=== PATIENT | male | born 1945 | race Caucasian/White ===

== ENCOUNTER 2021-05-03 13:44 | Observation (INO) | payer OTHER, SELFPAY ==
[~2021-05-03] VITALS: Ht 177.8 cm; Wt 90.7 kg
[2021-05-03 13:44] VITALS: BP_SYST 145
[~2021-05-03 13:44] MED LIST: ASPI-1393 PO; ATOR20TA64 PO; HYDR-3919 PO; LISI10TA29 PO; OMEP20CA4 PO; PROXL60 PO; [UNRECOGNIZED DRUG - CODE] PO
[2021-05-03 14:40] LABS: BASOPHILS % (AUTO) 0.4 % (0.0-2.0); EOSINOPHILS % (AUTO) 0.2 % (0.0-4.0); HEMATOCRIT 42.3 % (36-54); HEMOGLOBIN 14.9 g/dL (14.0-18.0); LYMPHOCYTES # (AUTO) 1.1 K/uL (1.0-5.5); LYMPHOCYTES % (AUTO) 9.8 % (20.5-51.5); MEAN CORPUSCULAR HEMOGLOBIN 33 pg (27-31); MEAN CORPUSCULAR HGB CONC 35 % (32-36); MEAN CORPUSCULAR VOLUME 95 fL (79.0-98.0); MONOCYTES # (AUTO) 1.2 K/uL (0.0-1.0); MONOCYTES % (AUTO) 11.1 % (1.7-9.3); NEUTROPHILS # (AUTO) 8.5 K/uL (1.8-7.7); NEUTROPHILS % (AUTO) 78.5 % (40.0-70.0); PLATELET COUNT (AUTO) 334 K/uL (130-430); RED BLOOD CELL COUNT(AUTO) 4.46 MIL/uL (4.2-6.2); RED CELL DISTRIBUTION WIDTH 11.9 % (9.0-15.0); WHITE BLOOD COUNT (AUTO) 10.8 K/uL (4.8-10.8)
[2021-05-03 14:50] LABS: ANION GAP 8 (5-15); CALCIUM 9.5 mg/dL (8.4-11.0); CHLORIDE 96 mmol/L (98-107); CREATININE 0.86 mg/dL (0.55-1.30); GLUCOSE 129 mg/dL (70-99); POTASSIUM 3.9 mmol/L (3.5-5.1); SODIUM SERUM 132 mmol/L (136-145); UREA NITROGEN, BLOOD 14 mg/dL (8-21)
[2021-05-03 14:59] LABS: ALANINE AMINOTRANSFERASE 58 U/L (12-78); ALBUMIN 3.7 g/dL (3.4-4.8); ASPARTATE AMINOTRANSFERASE 44 U/L (10-37); TOTAL BILIRUBIN 0.8 mg/dL (0.0-1.0)
[2021-05-03] MEDS ORDERED: AMLO5TAB4 PO (15:30)
[2021-05-03] MEDS ORDERED: PANT20TA2 PO (15:30)
[2021-05-03] MEDS ORDERED: TAMS-11 PO (15:30)
[2021-05-03 17:37] VITALS: BP_SYST 142
[2021-05-03] MEDS: D5NS 1,000 ML IV SCH (18:56)
[2021-05-03 19:05] LABS: BILIRUBIN,URINE NEGATIVE (NEGATIVE); BLOOD, URINE NEGATIVE (NEGATIVE); COLOR,URINE YELLOW (YELLOW); GLUCOSE,URINE NEGATIVE (NEGATIVE); KETONES,URINE 1+ (NEGATIVE); LEUKOCYTE ESTERASE ,URINE NEGATIVE (NEGATIVE); NITRITE, URINE NEGATIVE (NEGATIVE); PROTEIN URINE NEGATIVE (NEGATIVE)
[2021-05-03 19:46] LABS: CLARITY/URINE SLIGHTLY HAZY (CLEAR); UROBILINOGEN,URINE >=8 (0.2-1.0)
[2021-05-03 20:01] VITALS: BP_SYST 137
[2021-05-04 00:48] VITALS: BP_SYST 146
[2021-05-04 08:00] VITALS: BP_SYST 128
[2021-05-04] MEDS: TAMSULOSIN HCL 0.4 MG CAP PO SCH ×2 (09:00→09:31)
[2021-05-04] MEDS: ATORVASTATIN 20 MG TABLET PO SCH ×2 (09:00→09:33)
[2021-05-04] MEDS: LISINOPRIL 10 MG TABLET (PRINIVIL) PO SCH ×2 (09:00→09:32)
[2021-05-04] MEDS: amLODIPine BESYLATE 5 MG TABLET PO SCH ×2 (09:00→09:31)
[2021-05-04] MEDS: D5NS 1,000 ML IV SCH (09:27)
[2021-05-04 12:00] VITALS: BP_SYST 132
[2021-05-04 16:05] VITALS: BP_SYST 130
[2021-05-04 16:35] VITALS: BP_SYST 142
== END 2021-05-04 17:15 | disposition home or self-care (01) ==
LOC: SED 13:44 → INTOOBSV 15:37 → STU 15:37
PROVIDERS: ADMIT Internal Medicine Hospice and Palliative Medicine; ATTEND Internal Medicine Hospice and Palliative Medicine
DX: R41.0 Disorientation, unspecified (principal); Z20.822 Contact with and (suspected) exposure to COVID-19; R47.1 Dysarthria and anarthria; R27.0 Ataxia, unspecified; C43.9 Malignant melanoma of skin, unspecified; I10 Essential (primary) hypertension; K21.9 Gastro-esophageal reflux disease without esophagitis; R91.1 Solitary pulmonary nodule; Z79.899 Other long term (current) drug therapy
CPT/HCPCS: 36415; 70450; 70551; 71045; 76376; 80053; 81003; 84484; 85025; 85730; 87426; 92610; 93005; 94760; 96360; 96361 ×2; 97163; 99285; G0378

== ENCOUNTER 2021-05-08 14:28 | Emergency (ER) | payer OTHER, SELFPAY ==
[~2021-05-08] VITALS: Ht 177.8 cm; Wt 90.3 kg
[~2021-05-08 14:28] MED LIST changes: +AMLO5TAB4 PO; -ASPI-1393 PO; -HYDR-3919 PO; -OMEP20CA4 PO; +PANT20TA2 PO; -PROXL60 PO; +TAMS-11 PO; -[UNRECOGNIZED DRUG - CODE] PO
[2021-05-08 14:30] VITALS: BP_SYST 150
--- NOTE | 2021-05-08 14:30 | NUR ---
pt. bib ACLS from home with slurred speech, per speech has not improved since last admission, here on 05/03 with same c/o slurred speech that started on 04/29, EMS reported speech had improved then worsened last night but clarified has only worsened and called 911 today when gait was off, per pt. recently dx with CA that has spread all over per . Pt. has good stem mounter, able to follow directions
--- NOTE | 2021-05-08 14:30 | NUR ---
ER at bedside examining patient.
--- NOTE | 2021-05-08 14:30 | NUR ---
Patient to ER bed 2 to gown for evaluation. Side rails up.
--- NOTE | 2021-05-08 14:50 | NUR ---
report to [facility]
--- NOTE | 2021-05-08 15:12 | NUR ---
pt put on 2 lpm o2 via nasal cannula
[2021-05-08 15:13] LABS: HEMATOCRIT 40.8 % (36-54); HEMOGLOBIN 14.3 g/dL (14.0-18.0); LYMPHOCYTES # (AUTO) 0.8 K/uL (1.0-5.5); LYMPHOCYTES % (AUTO) 8.3 % (20.5-51.5); MEAN CORPUSCULAR HEMOGLOBIN 33 pg (27-31); MEAN CORPUSCULAR HGB CONC 35 % (32-36); MEAN CORPUSCULAR VOLUME 95 fL (79.0-98.0); MONOCYTES # (AUTO) 0.7 K/uL (0.0-1.0); MONOCYTES % (AUTO) 7.9 % (1.7-9.3); NEUTROPHILS # (AUTO) 7.5 K/uL (1.8-7.7); NEUTROPHILS % (AUTO) 82.2 % (40.0-70.0); PLATELET COUNT (AUTO) 345 K/uL (130-430); WHITE BLOOD COUNT (AUTO) 9.1 K/uL (4.8-10.8)
[2021-05-08 15:19] LABS: BASOPHILS % (AUTO) 0.3 % (0.0-2.0); EOSINOPHILS # (AUTO) 0.1 K/uL (0.0-0.4); EOSINOPHILS % (AUTO) 1.3 % (0.0-4.0)
[2021-05-08 15:21] LABS: ANION GAP 10 (5-15); CALCIUM 9.7 mg/dL (8.4-11.0); CHLORIDE 100 mmol/L (98-107); GLUCOSE 122 mg/dL (70-99); POTASSIUM 3.9 mmol/L (3.5-5.1); SODIUM SERUM 139 mmol/L (136-145); UREA NITROGEN, BLOOD 22 mg/dL (8-21)
[2021-05-08 15:30] LABS: ALANINE AMINOTRANSFERASE 66 U/L (12-78); ALBUMIN 3.5 g/dL (3.4-4.8); ASPARTATE AMINOTRANSFERASE 49 U/L (10-37); TOTAL BILIRUBIN 0.8 mg/dL (0.0-1.0)
--- NOTE | 2021-05-08 16:19 | NUR ---
PT WITH EYES CLOSED, RESP EVEN AND UNLABORED, IN NAD. VSS, SR ON MONITOR. AT BEDSIDE. SAFETY PRECAUTIONS IN PLACE.
--- NOTE | 2021-05-08 17:07 | NUR ---
FAMILY AT BEDSIDE, PT IN NAD. CONVERSING WITH AT BEDSIDE. PT DENIES ANY PAIN, CONTINUES WITH SLURRED SPEECH.
--- NOTE | 2021-05-08 17:14 | NUR ---
DR CHILEL SPEAKING WITH [facility] IN THE NURSING STATION.
--- NOTE | 2021-05-08 17:22 | NUR ---
I CALLED [facility] AND SPOKE WITH SENIOR UX DEVELOPER JAMES, STATES MULU WAS TALKING WITH DR CHILEL AND WILL CALL US BACK WHEN SHE GETS BACK INTO OFFICE. REGARDING TRANSFER
--- NOTE | 2021-05-08 18:39 | NUR ---
[employer]ALI DIESEL ENGINE ENGINEER IN CONTACT WITH [facility] FOR TRANSFER. PT STABLE.
--- NOTE | 2021-05-08 19:09 | NUR ---
RECEIVED REPORT FROM JOHN PAUL CR. PT PENDING TRNSFER TO [facility] FOR HIGHER LEVEL OF CARE. PT STABLE AT THIS TIME. WILL MONITOR NEEDED. AND DAUGHTER AT THE BEDSIDE.
--- NOTE | 2021-05-08 20:12 | NUR ---
PT IN BED RESTING, EYES OPEN. NOTED WITH SLURRED SPEECH. PT IN LOW FPWLERS POSITION. NO ACUTE DISTRESS, VITAL SIGNS STABLE. PENDING TRANSFER. WILL MONITOR CLOSELY.
--- NOTE | 2021-05-08 22:26 | NUR ---
PT EYES OPEN, RESPONSIVE TO VERBAL STIMULI. AND DAUGHTER AT THE BEDSIDE. VITALS STABLE. WILL CONTINUE TO MONITOR NEEDED.
--- NOTE | 2021-05-08 23:42 | NUR ---
PT IN BED RESTING EYES OPEN, PT RESPONSIVE TO VERBAL STIMULI WITH SLURRED SPEECH. PT ABLE TO UNDERSTAND AND FOLLOW COMMANDS. AND DAUGHTER ARE LEAVING THE BEDSIDE TO GO HOME FOR REST. WILL MONITOR PT CLOSELY.
--- NOTE | 2021-05-09 00:34 | NUR ---
PT RESTLESS, REPEATED ATTEMPTS TO GET OUT OF BED. ENCOURAGED TO CALL NURSE FOR ASSISTANCE. PT REDIRECTED TO RELAX, AND TRY TO REST UNTIL [facility]D TRANFER. PT CONTINUES TO HAVE SLURRED, GARBLED SPEECH. PT IN BED EYES OPEN. BED IN LOWEST POSITION. SIDERAILS UP FOR SAFETY. LEFT TO GO HOME. WILL MONITOR CLOSELY.
--- NOTE | 2021-05-09 00:46 | NUR ---
PT REMOVED NASAL CANNULA, O2 SATURATION AT 96 % ON ROOM AIR. PT PROVIDED WITH FLOOR BED FOR COMFORT. PT ENCOURAGED TO REST. WILL MONITOR CLOSELY
[2021-05-09] MEDS ORDERED: LORazepam 2 MG/ML VIAL ONE ×3 (01:37→08:41)
--- NOTE | 2021-05-09 01:37 | NUR ---
PT AWAKE BUT MORE CONFUSED, WITH RESTLESSNESS. PT VITAL SIGNS STABLE, MD NOTIFIED. NO NEW ORDERS AT THIS TIME. PT GIVEN ATIVAN 05 MG. PT NOTED TO MOVE ALL EXTREMITIES. PT PUPILS PERRLA RIGHT PUPIL MORE SLUGGISH THAN THE LEFT. OPERATING ROOM TECH MADE AWARE. WILL CONTINUTE TO MONITOR CLOSELY.
[2021-05-09] MEDS ORDERED: LORazepam 2 MG/ML VIAL IVP ONE ×3 (01:45→08:45)
--- NOTE | 2021-05-09 04:16 | NUR ---
PT RESTING IN BED EYES CLOSED, CHEST SYMETRICAL RISE AND FALL. VITAL SIGNS STABLE. PT REPORSITIONED TO LOW MOURA'S WITH LOWER EXTREMITIES SLIGHTLY RAISED. NASAL CANNULA INCRESED TO 3 LITERS/MIN FOR INCREASE IN OXYGEN SATURATION. WILL CONTINUE TO MONITOR CLOSELY.
--- NOTE | 2021-05-09 04:30 | NUR ---
ER director and CNO informed of current situation. ER principal secretary still trying to secure an ALS transfer for the patient to [place]. All available options exhausted at this point. Another call made to [facility]. Awaiting call back.
--- NOTE | 2021-05-09 04:41 | NUR ---
PT NO LONGER RESPONDING VERBALLY TO QUESTIONS. PT AWAKE, ALERT, BUT DID NOT RESPOND WHEN ASKED QUESTIONS. PT CLOTHING CHANGED AND REPOSITIONED. WILL MONITOR CLOSELY.
--- NOTE | 2021-05-09 05:54 | NUR ---
ALL POSSIBILITIES OF PT TRANSPORT HAVE BEEN EXHAUSTED AT THIS TIME, MD, LABOR OPERATOR, AND ED DIRECTOR ARE AWARE. PT CURRENTLY ON STANDBY FOR TRANSFER TO A HIGHER LEVEL OF CARE IN THE ED UNTIL FURTHER NOTICE. WILL MONITOR NEEDED.
--- NOTE | 2021-05-09 06:50 | NUR ---
PT IN BED RESTING WITH EYES CLOSED, NO ACUTE DISTRESS. PT RESPONSIVE TO TACTILE STIMULI, PT REMAINS ON 3 LITERS OXYGEN AT THIS TIME. VITAL SIGNS STABLE. BED IN LOWEST POSITION, SIDERAILS UP FOR SAFETY. PT STILL PENDING TRANSFER FOR HIGHER LEVEL OF CARE. AWAITING CALL BACK FOR TRANSFER OUT TO ANOTHER FACILITY. WILL CONTINUE TO MONITOR PT.
[2021-05-09] MEDS ORDERED: niCARdipine 25 MG in D5W 240 ML IV PRN (07:15)
--- NOTE | 2021-05-09 07:17 | NUR ---
REPORT RECEIVED FROM JOHN PAUL CON[facility] FOR CONTINUING CARE. PT IS SLEEPING IN HOSPITAL BED, EVEN UNLABORED RESPIRATIONS.
--- NOTE | 2021-05-09 07:30 | NUR ---
CALL FROM [facility]HW[facility] PAINTER HELPER AT [facility], UNABLE TO AUTHORIZE TRANSPORT DUE TO [place] NOT BEING CONTRACTED. CLINICAL INFORMATION PROVIDED BY DR. SZYMANSKI.
[2021-05-09] MEDS ORDERED: niCARdipine 2.5 MG/ML, 10 ML VIAL (CARDENE) IV ONE (07:38)
--- NOTE | 2021-05-09 08:20 | NUR ---
IV INFULTRATED AND REMOVED. # 20 gauge angiocath placed to RFA. Use of asceptic technique. Opsite placed over site. Blood return noted. Flushed with 10 cc of normal saline. No evidence of infiltration noted. Patient tolerated well.
--- NOTE | 2021-05-09 08:45 | NUR ---
AND DAUGHTER AT THE BEDSIDE, THIS TOWER TRUCK DRIVER AND DR. SZYMANSKI AT THE BEDSIDE FOR STATUS UPDATE
--- NOTE | 2021-05-09 08:52 | NUR ---
Patient to be transferred to [facility]. Is being transferred due to higher level of care. Receiving facility has accepting physician and available space. ER physician DR. SZYMANSKI has signed transfer form. Patient or responsible republican has agreed to transfer and signed form. Patient belongings inventoried and will be sent with patient. Copy of nursing notes, lab reports, EKG, Physicians Orders and X-rays to be sent with patient. Report called to [facility] OLEARY at receiving facility. Receiving physician is DR. ALLISON. [facility] has been called for transfer. ETA is [id number].
[2021-05-09] MEDS ORDERED: DEXAMETHASONE SOD PHOSPHATE 10 MG/ML VIAL IVP ONE (09:00)
[2021-05-09 09:30] VITALS: BP_SYST 151
== END 2021-05-09 09:38 | disposition short-term general hospital (02) ==
LOC: SED 14:28
DX: I61.4 Nontraumatic intracerebral hemorrhage in cerebellum (principal); Z85.9 Personal history of malignant neoplasm, unspecified; K21.9 Gastro-esophageal reflux disease without esophagitis; I10 Essential (primary) hypertension; Z20.822 Contact with and (suspected) exposure to COVID-19
CPT/HCPCS: 36415; 70450; 76376; 80053; 82962; 83880; 84484; 85025; 85379; 87426; 93005; 96365; 96375; 96376; 99285; J1100; J2060; J7060; 96374; 99284